=== PATIENT | female | born 1985 | race Caucasian/White ===

== ENCOUNTER 2022-03-15 19:16 | Emergency (ER) | payer BC, SELFPAY ==
[2022-03-15 19:17] VITALS: BP 116/85; PULSE 92; RESP 18; TEMP 36.9; O2SAT 100; BMI 23.6
--- NOTE | 2022-03-15 20:31 | HMH.EDWNDL ---
ED Disposition Clinical Impression: Finger laceration Qualifiers: Encounter type: initial encounter Finger: index finger Damage to nail status: without damage Foreign body presence: without foreign body Laterality: right Qualified Code(s): S61.210A - Laceration without foreign body of right index finger without damage to nail, initial encounter Disposition: Home, Self-Care Condition on Discharge: Good Instructions: DI for Laceration Repair Additional Instructions: suture out 10-12 days and recheck if needed Referrals: Provider,Referral, [Primary Care Provider] - - Critical Care Critical Care Time: No Attestation: On 03/15/22, the high probability of a clinically significant, sudden or life threatening deterioration of the following system(s) required my full and direct attention, intervention and personal management. The time I documented below is in addition to time spent performing reported procedures but includes the following listed in this critical care notation. Medical Decision Making - Medical Records Medical records reviewed: Yes: I reviewed the patient's medical records. - Bruce Inquiry Pt receiving controlled substance: No Vital Signs: 03/15/22 19:17 Temperature 98.4 F Temperature Source Oral Pulse Rate [Right] 92 H Respiratory Rate 18 Blood Pressure [Right Arm] 116/85 Blood Pressure Mean [Right Arm] 95 02 Sat by Pulse Oximetry 100 Orders (Tests/Meds): ED MEDICATIONS Discontinued Medications Generic Name Dose Route Start Last Admin Trade Name Freq PRN Reason Stop Dose Admin Tetanus/Diphtheria Toxoids 0.5 ml 03/15/22 20:06 03/15/22 20:07 Tetanus-Diphth Toxoid, Adult 0.5ml Syr IM 03/15/22 20:07 0.5 ml .ONCE ONE Administration Medical Decision Narrative: 2 cm lac distal rt index finger Wound/Laceration HPI - General Chief Complaint: Wound/Laceration Stated Complaint: ao 03/15 @1900 LAC r hAnd Time Seen by Provider: 03/15/22 20:00 Mode of Arrival: Ambulatory Source of Information: Patient, Medical Record Limitations: No Limitations Description of Symptoms (Recalled from ER Triage Doc. by RN): pt states was opening a can and cut r index finger - History of Present Illness HPI narrative: 2 cm lac rt index finger Onset (ago): hour(s) Extremity Location: Right: hand Place: home Patient tetanus UTD: No Context: accidental Associated symptoms: none - Related Data Home Medications Medication Instructions Recorded Confirmed No Known Home Medications 05/16/19 05/16/19 Allergies Allergy/AdvReac Type Severity Reaction Status Date / Time No Known Allergies Allergy Verified 05/16/19 04:06 [facility] History - Hepatitis A Screen Attestation statement:: This patient has been screened for Hepatitis A risk factors. I have reviewed the patient's past medical history: Yes Medical History: Denies:: Cancer, Diabetes Mellitus Type 1, Diabetes Mellitus Type 2, MRSA Laterality Cases: Bilateral: Tonsillectomy Amputation: No - Social History Smoking Status: Never smoker Alcohol Intake: never Occupational Status: unemployed ROS Obtained: Yes All systems reviewed & no additional complaints - Constitutional Constitutional: Denies fever(s) - Eyes Eyes: Denies change in vision - ENT Ears, Nose, Mouth, and Throat: Denies sore throat - Cardiovascular Cardiovascular: Denies chest pain - Respiratory Respiratory: Denies shortness of breath - Gastrointestinal Gastrointestingal: Denies: vomiting - Genitourinary Female Genitourinary: Denies hematuria - Musculoskeletal Musculoskeletal: Denies joint swelling - Integumentary/Breasts Skin/Breast: Reports as per HPI, Denies rash, Reports other (finger lac ) - Neurologic Neurologic: Denies seizure-like activity Physical Exam - General General appearance: alert - Head Head exam: normocephalic - Eye Eye exam: Present: PERRL, EOMI - ENT ENT exam: Present: mucous mem
[2022-03-15 20:39] VITALS: BP 120/74; PULSE 90; RESP 18; TEMP 36.9; O2SAT 99
== END 2022-03-15 20:40 | disposition home or self-care (01) ==
PROVIDERS: Emergency Provider Emergency Medicine
DX: S61.210A Laceration without foreign body of right index finger without damage to nail, initial encounter (principal); W26.8XXA Contact with other sharp object(s), not elsewhere classified, initial encounter; Y92.019 Unspecified place in single-family (private) house as the place of occurrence of the external cause; Z23 Encounter for immunization
CPT/HCPCS: 12001; 90714; 99213; G0463

== ENCOUNTER 2024-02-14 10:54 | Emergency (ER) | payer BC, SELFPAY ==
[2024-02-14] VITALS (11 sets, daily range): BP systolic 111–132; BP diastolic 71–87; PULSE 87–116; RESP 18; TEMP 36.7–37.1; O2SAT 97–100; BMI 25.6
--- NOTE | 2024-02-14 11:02 | ECG_ITS ---
APPROVED REPORT Exam: Resting ECG HR:101 bpm ECG Measurements Heart Rate 101 AXES GA 129 P 59 QRSd 83 QRS 44 QT 352 T 33 QTc 410 Conclusion SINUS TACHYCARDIA Normal internals No acute ST changes Electronically signed by : JASMINE TOBIN, 02/14/2024 13:47:31
[2024-02-14 11:25] LABS: Basophils # 0.1 K/mm3 (0-0.2); Basophils % 0.8 % (0.1-2.0); Eosinophils # 0.1 K/mm3 (0.0-0.4); Eosinophils % 1.5 % (0.1-12.0); Hematocrit 39.9 % (37.0-47.0); Lymphocytes # 2.3 K/mm3 (0.7-4.5); Mean Corpuscular HGB Conc 32.5 g/dL (31.8-35.4); Mean Corpuscular Volume 89.2 fl (81-99); Mean Platelet Volume 8.7 fl (7.4-10.4); Monocytes # 0.5 K/mm3 (0.1-1.0); Monocytes % 5.5 % (1.7-9.3); Neutrophils # 5.5 K/mm3 (1.8-7.8); Neutrophils % 65.2 % (37.0-80.0); Platelet Count 301 K/mm3 (142-424); Red Blood Count 4.48 M/mm3 (4.20-5.40); Red Cell Distribution Width 13.8 % (11.5-17.5); White Blood Count 8.5 K/mm3 (4.8-10.8)
[2024-02-14 11:31] LABS: Alanine Aminotransferase 25 U/L (12-78); Albumin Level 4.6 g/dl (3.5-5.0); Albumin/Globulin Ratio 1.5 (1.1-1.8); Alkaline Phosphatase 51 U/L (38-126); Anion Gap 14.7 mEq/L (5-15); Aspartate Amino Transferase 29 U/L (14-36); Bilirubin,Total 0.5 mg/dl (0.2-1.3); Blood Urea Nitrogen 11 mg/dl (7-17); Calcium 9.4 mg/dl (8.4-10.2); Carbon Dioxide 23 mmol/L (22.0-30.0); Chloride 107 mmol/L (98-107); Creatinine Clearance Estimated 127 mL/min (50-200); Estimated Glomerular Filt Rate 112 ml/min (>60); GFR (African American) 135 ML/MIN (>60); Globulin 3.1 g/dL (1.3-3.2); Glucose 123 mg/dl (74-100); Potassium 3.7 mmoL/L (3.5-5.1); Sodium 141 mmol/L (136-145); Total Protein,Serum 7.7 g/dl (6.3-8.2)
[2024-02-14 11:36] LABS: Microscopic, Urine URINE MICROSCOPIC (MICROSCOPIC)
[2024-02-14 11:38] LABS: Appearance,Urine CLEAR (Clear); Bilirubin,Urine Negative (Negative); Blood, Urine Negative (Negative); Color,Urine YELLOW (Yellow); Glucose,Urine (UA) Negative (Negative); Ketones,Urine Negative (Negative); Leukocyte Esterase,Urine Negative (Negative); Nitrate,Urine Negative (Negative); PH,Urine 5.5 (5.0-8.5); Protein,Urine Negative (Negative); Urobilinogen,Urine 0.2 EU/dl (0.2)
[2024-02-14 11:40] LABS: Coronavirus 19, PCR Not Detected (NotDetected); Influenza A, PCR Not Detected (NotDetected); Influenza B, PCR Not Detected (NotDetected)
[2024-02-14 11:43] LABS: Monoscreen (Rapid) Negative (Negative)
[2024-02-14 11:46] LABS: Troponin I < 0.01 ng/ml (0.00-0.034)
--- NOTE | 2024-02-14 11:47 | HMH.EDGENADL ---
Discharge Plan Disposition Patient Disposition: Home, Self-Care Condition: Good Prescriptions Prescriptions: New ondansetron HCl 4 mg tablet 4 mg PO Q8H PRN (Reason: nausea and vomiting) 4 Days Qty: 12 0RF Referrals Follow up/Referrals: Sarita Aguilera MD [Primary Care Provider] - See instructions Activity Restrictions/Add. Instructions Additional Instructions/Restrictions: You were evaluated in the emergency department today. Please diamond picker your prescription for Zofran and take as needed for nausea and vomiting. Make sure that you are staying hydrated. Follow-up with your primary care provider over the next week for reassessment. Return for new or worsening symptoms Clinical Impressions Clinical Impression: Nausea, Syncope, vasovagal Stand Alone Forms Stand Alone Forms: Work/School Release Instructions Patient Instructions: DI for Syncope in Adults (Fainting), DI for Nausea -- Adult Discharge ED Provider: Natty [facility] Adult HPI General Chief complaint: Syncope Stated complaint: syncope, dizzy Time Seen by Provider: 02/14/24 11:01 Mode of Arrival: Ambulatory Source of Information: Patient Limitations: No Limitations Description of Symptoms (Recalled from ER Triage Doc. by RN): pt presents to ED with c/o dizziness and syncope. pt reports that she did have a fainting episode last night, pt did not hit head. pt reports that she was at work and began to feel dizzy and pale. History of Present Illness HPI narrative: This patient is a 38-year-old female presenting to the emergency department for evaluation with concern for lightheadedness, syncope, and fatigue. Patient reports that yesterday she was feeling tired and fatigued all day, and she had an episode of fainting last night. States she felt very lightheaded so she laid down, at which point she had a brief syncopal episode. She did not fall or have any injuries as a result of this. She states that today at work, she was walking on the hallway when suddenly she became very lightheaded, pale, diaphoretic, and also felt like she was going to pass out. 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 With this episode, she has severe episode of abdominal pain that is since resolved. She also felt extremely nauseated at that time, but this is also resolved. She is feeling little bit better now. She denies any headache, vision changes, sore throat, cough, congestion, fever, chills, chest pain, shortness of breath, vomiting, changes in bowel movements, urinary symptoms, rashes, or swelling. No history of blood clots or clotting disorders, and no hormonal use. She does not think that she is . She is not currently experiencing any pain at this time. 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 Related Data Previous Rx's Medication Instructions Recorded ondansetron HCl 4 mg tablet 4 mg PO Q8H PRN nausea and 02/14/24 vomiting 4 days #12 tabs Allergies Allergy/AdvReac Type Severity Reaction Status Date / Time No Known Allergies Allergy Verified 05/16/19 04:06 [facility] Disclaimer: The information contained in this section may have been updated after the patient was seen, as this information can be updated by other users. Social History Smoking Status: Never smoker alcohol intake: never current occupational status: unemployed Travel in the last 8 weeks: None ROS Obtained: Yes All systems reviewed & no additional complaints except as documented Physical Exam General General appearance: alert and in no apparent distress Head Head exam: atraumatic and normocephalic Eye Eye exam: Present normal appearance, PERRL and EOMI ENT ENT exam: Present normal exam, normal oropharynx, mucous membranes moist and normal external ear exam Neck Neck exam: Present normal inspection, full ROM and trachea midline; Absent tenderness Chest Chest inspection: Present normal inspection and symmetric chest wall rise; Absent tenderness Respiratory Respiratory exam: Present normal lung sounds bilaterally; Absent respiratory distress, wheezes, stridor or accessory muscle use Cardiovascular Cardiovascular exam: Present regular rate and normal rhythm Abdominal Exam Abdominal exam: Present soft and normal bowel sounds; Absent distention, tenderness, guarding, rebound, rigidity, diminished bowel sounds or organomegaly Extremities Exam Extremities exam: Present normal inspection, full ROM and normal capillary refill; Absent tenderness or edema Back Exam Back exam: Present normal inspection and full ROM; Absent tenderness Neurological Exam Neurological exam: Present alert, oriented X3, CN II-XII intact and normal gait; Absent motor sensory deficit Psychiatric Psychiatric exam: Present normal affect and normal mood Skin Skin exam: Present warm and dry Medical Decision Making Medical Records Medical records reviewed: Yes I reviewed the patient's medical records. Bruce Inquiry Pt receiving controlled substance: No Vital Signs: 02/14/24 10:56 02/14/24 11:10 02/14/24 11:17 Temperature 98.8 F Temperature Source Oral Pulse Rate 107 H Pulse Rate [Left Radial] 116 H Pulse Rate [Orthostatic Lying Right Radial] 98 H Pulse Rate [Orthostatic Sitting Right Radial] 105 H Pulse Rate [Orthostatic Standing Right Radial] 114 H Respiratory Rate 18 Blood Pressure Blood Pressure [Orthostatic Lying Left Arm] 119/82 Blood Pressure [Orthostatic Sitting Left Arm] 112/82 Blood Pressure [Orthostatic Standing Left Arm] 132/86 Blood Pressure [Right Arm] 122/74 Blood Pressure Mean Blood Pressure Mean [Right Arm] 90 02 Sat by Pulse Oximetry 99 100 Oxygen Delivery Method Room Air 02/14/24 11:27 02/14/24 11:27 02/14/24 11:28 Temperature Temperature Source Pulse Rate 98 H 98 H 110 H Pulse Rate [Left Radial] Pulse Rate [Orthostatic Lying Right Radial] Pulse Rate [Orthostatic Sitting Right Radial] Pulse Rate [Orthostatic Standing Right Radial] Respiratory Rate Blood Pressure 112/82 119/82 132/86 Blood Pressure [Orthostatic Lying Left Arm] Blood Pressure [Orthostatic Sitting Left Arm] Blood Pressure [Orthostatic Standing Left Arm] Blood Pressure [Right Arm] Blood Pressure Mean 92 91 Blood Pressure Mean [Right Arm] 02 Sat by Pulse Oximetry 99 99 98 Oxygen Delivery Method Room Air Room Air Room Air 02/14/24 11:33 02/14/24 12:00 02/14/24 12:30 Temperature Temperature Source Pulse Rate 92 H 92 H 90 Pulse Rate [Left Radial] Pulse Rate [Orthostatic Lying Right Radial] Pulse Rate [Orthostatic Sitting Right Radial] Pulse Rate [Orthostatic Standing Right Radial] Respiratory Rate Blood Pressure 111/72 120/87 114/71 Blood Pressure [Orthostatic Lying Left Arm] Blood Pressure [Orthostatic Sitting Left Arm] Blood Pressure [Orthostatic Standing Left Arm] Blood Pressure [Right Arm] Blood Pressure Mean 85 Blood Pressure Mean [Right Arm] 02 Sat by Pulse Oximetry 99 97 100 Oxygen Delivery Method Room Air Room Air 02/14/24 13:00 02/14/24 13:31 Temperature Temperature Source Pulse Rate 87 90 Pulse Rate [Left Radial] Pulse Rate [Orthostatic Lying Right Radial] Pulse Rate [Orthostatic Sitting Right Radial] Pulse Rate [Orthostatic Standing Right Radial] Respiratory Rate Blood Pressure 121/75 114/74 Blood Pressure [Orthostatic Lying Left Arm] Blood Pressure [Orthostatic Sitting Left Arm] Blood Pressure [Orthostatic Standing Left Arm] Blood Pressure [Right Arm] Blood Pressure Mean 87 Blood Pressure Mean [Right Arm] 02 Sat by Pulse Oximetry 99 100 Oxygen Delivery Method Room Air Lab Data Lab results reviewed: Yes I reviewed the patient's lab results. Lab Results 02/14/24 11:05: WBC 8.5, RBC 4.48, Hgb 13.0, Hct 39.9, MCV 89.2, MCH 29.0, MCHC 32.5, RDW 13.8, Plt Count 301, MPV 8.7, Neut % (Auto) 65.2, Lymph % (Auto) 27.0, Sharp % (Auto) 5.5, Eos % (Auto) 1.5, Baso % (Auto) 0.8, Neut # (Auto) 5.5, Lymph # (Auto) 2.3, Sharp # (Auto) 0.5, Eos # (Auto) 0.1, Baso # (Auto) 0.1, PT 10.6, INR 0.98, APTT 30.3, D-Dimer 0.33, Sodium 141, Potassium 3.7, Chloride 107, Carbon Dioxide 23, Anion Gap 14.7, BUN 11, Creatinine 0.60, Estimated Creat Clear 127, Estimated GFR 112, Est GFR ( Amer) 135, Glucose 123 H, Calcium 9.4, Total Bilirubin 0.5, AST 29, ALT 25, Alkaline Phosphatase 51, Troponin I < 0.01 02/14/24 11:05: Troponin I < 0.01, Total Protein 7.7, Albumin 4.6, Globulin 3.1, Albumin/Globulin Ratio 1.5, TSH 0.69, Thyroxine (T4) 8.6, Serum HCG, Qual Negative, Monoscreen Negative 02/14/24 11:25: SARS-CoV-2 (PCR) Not detected, Influenza A Untype (PCR) Not detected, Influenza Type B (PCR) Not detected 02/14/24 11:31: Urine Color Yellow, Urine Appearance Clear, Urine pH 5.5, Ur Specific [place] 1.010, Urine Protein Negative, Urine Glucose (UA) Negative, Urine Ketones Negative, Urine Blood Negative, Urine Nitrate Negative, Urine Bilirubin Negative, Urine Urobilinogen 0.2, Ur Leukocyte Esterase Negative, Urine RBC Occasional, Urine WBC Occasional, Ur Squamous Epith Cells Occasional, Urine Bacteria Trace 02/14/24 11:05 02/14/24 11:05 Orders (Tests/Meds): ED MEDICATIONS Discontinued Medications Generic Name Dose Route Start Last Admin Trade Name Freq PRN Reason Stop Dose Admin Lactated Ringer's 1,000 mls @ 999 mls/hr 02/14/24 11:37 02/14/24 12:16 Lactated Ringer's 1000 Ml Bag IV 02/14/24 12:37 999 mls/hr .Q1H1M ONE Administration Ondansetron HCl 4 mg 02/14/24 12:50 02/14/24 12:56 Ondansetron 4mg/2ml Vial IV 02/14/24 12:51 4 mg ONCE ONE Administration ORDERS Category Date Time Status Activated Partial Thrombo Time Stat Lab 02/14/24 11:05 Completed CMV PCR Stat Lab 02/14/24 11:05 Received Complete Blood Count Auto Diff Stat Lab 02/14/24 11:05 Completed Comprehensive Metabolic Panel Stat Lab 02/14/24 11:05 Completed D-Dimer Stat Lab 02/14/24 11:05 Completed EBV Acute Infection Antibodies Stat Lab 02/14/24 11:05 Received HCG Qualitative, Serum Stat Lab 02/14/24 11:05 Completed Monoscreen (Rapid) Stat Lab 02/14/24 11:05 Completed Prothrombin Time INR Stat Lab 02/14/24 11:05 Completed Rapid PCR Covid and Flu A/B Stat Lab 02/14/24 11:25 Completed T4 (Thyroxine) Stat Lab 02/14/24 11:05 Completed TSH [Thyroid Stimulating Hormone] Stat Lab 02/14/24 11:05 Completed Troponin I Q3H Lab 02/14/24 11:05 Completed Troponin I Q3H Lab 02/14/24 17:30 Ordered Troponin I Stat Lab 02/14/24 11:05 Completed Urinalysis and Microscopic Stat Lab 02/14/24 11:31 Completed ECG Data Tracing #1: I reviewed this ECG and interpreted as documented below: Sinus tachycardia with a ventricular rate of [address] changes concerning for ischemia. Normal axis and intervals. ECG initial impression date: 02/14/24 ECG initial impression time: 11:04 Medical Decision Narrative: In summary, this patient is a 38-year-old female presenting to the Emergency Department for evaluation of lightheadedness, weakness, and syncope. Differential diagnoses considered include but are not limited to ACS, dysrhythmia, viral syndrome, dehydration, hypokalemia, hyponatremia, PE, infectious mononucleosis, , orthostatic hypotension, vasovagal syncope. Ruling out the most morbid conditions drove assessment. On exam, the patient is well-appearing. She is currently mildly tachycardic with a heart rate in the low 100s, but otherwise vitals and exam are reassuring. No complaints of pain or abnormal findings on exam otherwise at this time. No neurologic symptoms or deficits that would suggest intracranial cause. Workup included CBC, CMP, troponin, D-dimer, Monospot testing, EBV and CMV testing, test, urinalysis, and EKG. EKG obtained is reassuring. Orthostatic vital signs were obtained which did not demonstrate any significant orthostasis. Patient was given a bolus of IV fluids here. On reassessment, patient does complain of nausea. She states she thinks that she might have some sort of bug. She was given IV Zofran with good improvement. Vitals remain reassuring on cardiac telemetry with improvement in her heart rate after administration of IV fluids. Labs are reassuring with normal CBC, normal CMP, normal TSH and T4, negative troponin, negative D-dimer, negative test, negative Monospot test, and negative COVID/flu test. 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 I feel that she likely had vasovagal syncope in the setting of nausea. Given reassuring workup and exam as well as improvement in symptoms, I do feel that the patient is appropriate for discharge with instruction for supportive management and prescription for Zofran. Patient was given strict return precautions and was discharged after all questions were answered. Critical Care Critical Care Time Critical Care Time: No
[2024-02-14 11:48] LABS: Activated Partial Thrombo Time 30.3 seconds (22.8-30.6); INR 0.98 (0.9-1.1); Prothrombin Time 10.6 seconds (10.1-12.5)
[2024-02-14 11:52] LABS: HCG Qualitative, Serum Negative (Negative)
[2024-02-14 11:56] LABS: D-Dimer 0.33 ug/mL (0.0-0.5)
[2024-02-14 11:56] LABS: Bacteria,Urine Trace /lpf; RBC,Urine Occasional #/hpf (0-3); Squamous Epithelial Cell,Urine Occasional #/hpf (0-5); WBC,Urine Occasional #/hpf (0-3)
[2024-02-14] MEDS: LACTATED RINGERS 1000ML 1,000 ML 999 ML IV (12:16)
--- NOTE | 2024-02-14 12:47 | PC.NURSE ---
dr melendez at bedside
[2024-02-14] MEDS: ONDANSETRON 4MG/2ML VIAL 4 MG IV (12:56)
[2024-02-14 13:08] LABS: Troponin I < 0.01 ng/ml (0.00-0.034)
[2024-02-14 13:12] LABS: T4 (Thyroxine) 8.6 ug/dl (5.53-11.0)
[2024-02-14 13:26] LABS: Thyroid Stimulating Hormone 0.69 uIU/mL (0.465-4.68)
[2024-02-15 15:35] LABS: EBV Ab VCA, IgG 81.8 U/mL (0.0-17.9); EBV Ab VCA, IgM <36.0 U/mL (0.0-35.9)
[2024-02-17 14:09] LABS: CMV PCR Negative (Negative)
== END 2024-02-14 13:49 | disposition home or self-care (01) ==
PROVIDERS: Emergency Provider Emergency Medicine; PCP Family Medicine
DX: R55 Syncope and collapse (principal); B27.99 Infectious mononucleosis, unspecified with other complication; R00.0 Tachycardia, unspecified; R11.0 Nausea; R42 Dizziness and giddiness; R53.83 Other fatigue
CPT/HCPCS: 80053; 81001; 84436; 84443; 84484; 84703; 85025; 85378; 85610; 85730; 86318; 86664; 86665; 87496; 87636; 93005; 96361; 96374; 99284; J2405